=== PATIENT | female | born 1985 | race Caucasian/White ===

== ENCOUNTER 2024-01-24 09:01 | Emergency (ER) | payer BC, SELFPAY ==
[2024-01-24 09:02] VITALS: BP 143/91
--- NOTE | 2024-01-24 09:09 | ED.GENMED ---
History of Present Illness
<Ernestine Nova PA-C - Last Filed: 01/24/24 17:27>
General
Chief Complaint: Abdominal Symptoms
Source: patient
Exam Limitations: none
Time Seen by Provider: 01/24/24 09:08
Nursing documentation reviewed up to this point in time: agreed with
History of Present Illness
History of Present Illness:
38 y/o female with PMH of ovarian cysts, biliary colic, presenting to the emergency department today with RLQ pain x5 days. Patient reports that when the symptoms first started, she noted that the pain felt like gas pain and she thought nothing of
it. The pain would come and go at first. She then noted the pain started to be persistent the past 3 days. She feels as though the pain is worse with movement. She is never felt pain like this before. She states that she has had ovarian cysts
in the past but this feels different. Her last menstrual period was December 25. She notes some mild nausea at times but no vomiting, no fevers or chills, no vaginal disc, no burning with urination, no recent travel outside the country, no
abdominal surgeries other than ex lap when she was 19 to look for endometriosis. She states that she has daily bilious diarrhea after eating related to gall bladder issues, but she has never had any treatment for this. She denies sick contacts.
Past History
<Ernestine Nova PA-C - Last Filed: 01/24/24 17:27>
Past History
ED Past Medical History: GERD, Psychiatric (Depression) and Other (Chronic low back pain, neuropathy, migraine headaches, gastritis)
ED Past Surgical History: Orthopedic (L4/S1 discectomy, spinal cord stimulator) and Other (Upper endoscopies)
Social History
Tobacco: Non-smoker
Alcohol: None
Personal:
Living: with family
Employment: Employed (RN)
Family History
Family History: Other (Noncontributory)
Review of Systems
<RODY Urbina Last Filed: 01/24/24 17:27>
Review of Systems
All Other Systems: ROS reviewed and negative except as documented in HPI and ROS
Phy Exam
<Ernestine Nova PA-C - Last Filed: 01/24/24 17:27>
Physical Exam
Physical Exam:
General: Patient is well appearing and in no acute distress; non-toxic
Skin: Warm and dry, no rashes or lesions
Head: Normocephalic, atraumatic
Eyes: Sclera non-icteric. EOMs intact.
Cardiac: Regular rate and rhythm, no murmurs
Pulm: Normal respiratory effort, no wheezes, rales, or rhonchi
Abdomen: Tenderness palpation of McBurney's point. No adnexal tenderness. Negative psoas sign. No rebound tenderness, no guarding
Neuro: CN II-XII intact, no focal neurologic deficits.
Psychiatric: Appropriate mood and affect.
Course
<Ernestine Nova PA-C - Last Filed: 01/24/24 17:27>
Orders/Labs/Results
Orders:
Orders
01/24/24 09:21
IV Insert/Care/Rem.- Treatment PRN
01/24/24 09:22
Test Result ONCE
01/24/24 09:24
CT Abd/pelvis W Iv Cont Urgent
Comment:
Reason For Exam: RLQ pain
01/24/24 09:35
Complete Blood Count/With Diff Urgent
Comprehensive Metabolic Panel Urgent
Lipase Urgent
, Urine Qualitative Screen [HCG, Urine Qualitative Screen] Urgent
Date Specimen was Collected: 01/24/24
Time Specimen was Collected: 09:31
01/24/24 12:02
US Pelvis W Transvag Combined Urgent
Reason For Exam: RLQ pain, attn to flow
Abnormal Lab Results
01/24/24
09:35
RBC 3.70 L 10^6/uL
(4.20-5.40)
Hgb 11.6 L g/dL
(12.0-16.0)
Hct 33.5 L %
(37.0-47.0)
MCH 31.4 H pg
(27.0-31.0)
BUN 6 L mg/dl
(7-17)
Creatinine 0.5 L mg/dL
(0.6-1.0)
01/24/24 09:35
01/24/24 09:35
Vital Signs
Initial and Last Documented VS:
Initial Vital Signs
Temp Pulse Resp BP Pulse Ox
98.0 F 100 16 143/91 98
01/24/24 09:02 01/24/24 09:02 01/24/24 09:02 01/24/24 09:02 01/24/24 09:02
Last Documented Vital Signs
Temp Pulse Resp BP Pulse Ox
98.0 F 59 16 115/53 99
01/24/24 09:02 01/24/24 14:20 01/24/24 14:20 01/24/24 14:20 01/24/24 14:20
<Em Miramontes MD - Last Filed: 01/24/24 10:28>
Orders/Labs/Results
Orders:
Orders
01/24/24 09:21
IV Insert/Care/Rem.- Treatment PRN
01/24/24 09:22
Test Result ONCE
01/24/24 09:24
CT Abd/pelvis W Iv Cont Urgent
Comment:
Reason For Exam: RLQ pain
01/24/24 09:35
Complete Blood Count/With Diff Urgent
Comprehensive Metabolic Panel Urgent
Lipase Urgent
, Urine Qualitative Screen [HCG, Urine Qualitative Screen] Urgent
Date Specimen was Collected: 01/24/24
Time Specimen was Collected: 09:31
01/24/24 12:02
US Pelvis W Transvag Combined Urgent
Reason For Exam: RLQ pain, attn to flow
Abnormal Lab Results
01/24/24
09:35
RBC 3.70 L 10^6/uL
(4.20-5.40)
Hgb 11.6 L g/dL
(12.0-16.0)
Hct 33.5 L %
(37.0-47.0)
MCH 31.4 H pg
(27.0-31.0)
BUN 6 L mg/dl
(7-17)
Creatinine 0.5 L mg/dL
(0.6-1.0)
01/24/24 09:35
01/24/24 09:35
Vital Signs
Initial and Last Documented VS:
Initial Vital Signs
Temp Pulse Resp BP Pulse Ox
98.0 F 100 16 143/91 98
01/24/24 09:02 01/24/24 09:02 01/24/24 09:02 01/24/24 09:02 01/24/24 09:02
Last Documented Vital Signs
Temp Pulse Resp BP Pulse Ox
98.0 F 59 16 115/53 99
01/24/24 09:02 01/24/24 14:20 01/24/24 14:20 01/24/24 14:20 01/24/24 14:20
Carlotalt;Ernestine Nova PA-C - Last Filed: 01/24/24 17:27>
MDM/Problems Addressed
Differential Diagnosis Includes:
Differentials include appendicitis, gastroenteritis, biliary colic, ectopic , ovarian cyst, menses
MDM/Problems Addressed:
38-year-old female presents with right lower quadrant pain. States this pain feels different and says she has had in the past will obtain CAT scan of the abdomen to rule out appendicitis. Labs pending. test pending.
CT demonstrates right ovarian cyst with free fluid, no evidence of appendicitis. Will send for ultrasound to rule out torsion.
Pelvic ultrasound negative for torsion, does show cyst. Discussed findings with patient. Patient states that she has a follow-up appoint with with her POT TENDER next week. Discussed return precautions. CBC and CMP unremarkable. Patient stable for
discharge.
Chronic conditions affecting care:
ovarian cysts, GERD, anxety depression, UTI
<Ernestine Nova PA-C - Last Filed: 01/24/24 17:27>
*Pulse Oximetry
Patient hypoxic: no
*Critical Care Note
Total Time (30-74mins, 75-104mins- exclusive of procedures): Not Applicable
Data Reviewed
Review of Other/Old Records Reveals: Records (reviewed ER physician documentation, patient seen for major depression on 07/13/18), Radiology Studies (no past abdominal CT scan to review ) and Discharge Summary (no discharge summaries to review )
Source: patient
ED Attending Note
<Ernestine Nova PA-C - Last Filed: 01/24/24 17:27>
-
Portions of this chart may have been created with voice recognition software.� Occasional wrong word or��sound alike� substitutions may have occurred due to the inherent limitations of voice recognition software.
<Em Miramontes MD - Last Filed: 01/24/24 10:28>
ED Attending Note
Patient seen and examined by attending physician: Yes
I performed the substantive portion of visit, reviewed & personally made and approve the management plan that is documented in note by myself or MAGDA.: Yes
ED Attending Note:
Patient appears well nontoxic. On exam, heart sounds regular lungs are clear. Patient has right lower quadrant tenderness without rebound or guarding. Awaiting CT
Discharge Plan
Departure
Patient Disposition: Home (Routine Discharge)
Date of Disposition: 01/24/24
Time of Disposition: 14:05
Patient with high blood pressure during this ER visit?: Yes
Condition: Good
Discharge Problem:
Right sided abdominal pain
Instructions: Abdominal Pain, BLOOD PRESSURE
Prescriptions:
No Action
esomeprazole magnesium [Nexium] 40 MG capsule,delayed release(DR/EC)
40 mg PO BID Qty: 60 0RF
sucralfate [Carafate] 1 GM/10 ML suspension
1 gm PO ACHS Qty: 560 0RF
Referrals:
Sky Acevedo MD [Family Provider] -
Activity Restrictions/Additional Instructions:
Please follow-up with your yearly POT TENDER visit next week as scheduled.
Please return to the emergency department should you experience fevers or chills, and acute worsening of your pain, intractable nausea or vomiting, chest pain, shortness of breath, or any other signs or symptoms concerning to you.
A copy of your ultrasound report is included in this packet along with your CT report.
Interventions
Interventions:
*Risk Screen - Suicide Last Done: 01/24/24 09:02
*General Assessment Last Done: 01/24/24 10:45
*Neglect/Abuse Screening Last Done: 01/24/24 09:02
ED- Fall Risk Assessment Last Done: 01/24/24 14:22
*ED COVID-19 Vaccine History Last Done: 01/24/24 10:45
*Nursing Disposition Last Done: 01/24/24 14:22
TQ-Bqvxqi-Omrhwvxuts Assessment Last Done: 01/24/24 10:45
Discharge Date and Time
Discharge Date/Time: 01/24/24 14:24
Print Language: YI
[2024-01-24 09:52] LABS: % Basophils 0.5 % (0-2); % Immature Granulocytes 0.2 % (0-0.5); % Lymphocytes 25.1 % (20.5-51.1); % Monocytes 6.2 % (1.7-9.3); Absolute Eosinophils 0.1 10^3/uL (0-0.7); Absolute Lymphocytes 2.2 10^3/uL (1.2-3.4); Absolute Monocytes 0.6 10^3/uL (0.1-0.6); Absolute Neutrophils 5.9 10^3/uL (1.4-6.5); Hematocrit 33.5 % (37.0-47.0); Hemoglobin 11.6 g/dL (12.0-16.0); Mean Corp Hgb Conc. 34.6 g/dL (33.0-37.0); Mean Corpuscular Hgb 31.4 pg (27.0-31.0); Mean Corpuscular Volume 90.5 fL (81.0-99.0); Mean Platelet Volume 10.2 fL (7.4-10.4); Nucleated Red Blood Cells % 0 %; Platelet Count 216 10^3/uL (130-400); Red Cell Dist. Width 12.2 % (11.5-14.5); White Blood Cell Count 8.8 10^3/uL (4.8-10.8)
[2024-01-24 09:58] LABS: HCG, Urine Qualitative Screen Negative
[2024-01-24 10:05] LABS: ALT (SGPT) 21 U/L (0-35); AST (SGOT) 20 U/L (14-36); Albumin 4.8 g/dl (3.5-5.0); Alkaline Phosphatase 52 U/L (38-126); Blood Urea Nitrogen 6 mg/dl (7-17); Calcium 9.5 mg/dl (8.4-10.2); Carbon Dioxide 24 mmol/L (22-30); Chloride 102 mmol/L (98-107); Glucose 98 mg/dl (70-99); Lipase 92 U/L (23-300); Potassium 3.7 mmol/L (3.5-5.1); Sodium 139 mmol/L (135-145); Total Bilirubin 0.5 mg/dl (0.2-1.3); Total Protein 7.4 g/dl (6.3-8.2); eGFR > 60.00
[2024-01-24 14:20] VITALS: BP 115/53
== END 2024-01-24 14:24 | disposition home or self-care (01) ==
LOC: EMR 09:01
PROVIDERS: Physician Assistant; EMERGENCY PHYSICIAN Emergency Medicine; FAMILY PHYSICIAN Family Medicine
DX: R10.31 Right lower quadrant pain (principal)
CPT/HCPCS: 99285; 74177; 76830; 76856; 80053; 81025; 83690; 85025; Q9967